=== PATIENT | female | born 2000 | race Caucasian/White ===

== ENCOUNTER 2022-11-17 16:49 | Inpatient (IN) | payer MEDICAID ==
[~2022-11-17] VITALS: Ht 162.6 cm; Wt 61.0 kg
[2022-11-17] MEDS ORDERED: LORAZEPAM 2MG/ML CPJ IM NR (17:00)
[2022-11-17 17:22] LABS: BASOPHILS % 0.2 % (0.0-2.0); EOSINOPHILS % 0.1 % (0.0-5.0); HEMATOCRIT. 34.5 % (36.0-48.0); HEMOGLOBIN. 11.2 g/dL (12.0-16.0); LYMPHOCYTES % 9.2 % (20.0-50.0); MEAN CORPUSCULAR HEMOGLOBIN 30.4 pg (28.0-32.0); MEAN CORPUSCULAR VOLUME 93.8 fL (81.0-99.0); MEAN PLATELET VOLUME 7.5 fl (7.4-10.4); MONOCYTES % 4.5 % (2.0-8.0); PLATELET 271 x1000/uL (130-400); RED BLOOD CELL COUNT 3.68 mill/uL (4.2-5.4)
[2022-11-17 17:31] LABS: CHLORIDE 96 mEq/L (98-107)
[2022-11-17] MEDS ORDERED: SODIUM CHLORIDE 0.9% 1,000 ML IV ONE (19:30)
[2022-11-17 20:15] LABS: ETHANOL BLOOD < 10 mg/dL (-10); PHOSPHORUS 2.4 mg/dL (2.5-4.9)
[2022-11-17] MEDS: KCL 10MEQ/50ML PREMIX 100 ML IV SCH ×2 (21:11→22:14)
[2022-11-17 21:59] LABS: CREATINE KINASE 1641 IU/L (26-192)
[2022-11-18 08:00] VITALS: BP 126/77; PULSE 94; RESP 18; TEMP 97.5
[2022-11-18 12:00] VITALS: BP 107/75; PULSE 89; RESP 23; TEMP 98.1
[2022-11-18] MEDS ORDERED: LORAZEPAM 2MG/ML CPJ IV PRN (12:00)
[2022-11-18 15:41] LABS: BASOPHILS % 0.2 % (0.0-2.0); EOSINOPHILS % 0.1 % (0.0-5.0); HEMATOCRIT. 38.4 % (36.0-48.0); HEMOGLOBIN. 12.7 g/dL (12.0-16.0); LYMPHOCYTES % 18.1 % (20.0-50.0); MEAN CORPUSCULAR HEMOGLOBIN 30.7 pg (28.0-32.0); MEAN CORPUSCULAR VOLUME 92.4 fL (81.0-99.0); MEAN PLATELET VOLUME 7.7 fl (7.4-10.4); MONOCYTES % 9.8 % (2.0-8.0); NEUTROPHILS % 71.8 % (40.0-76.0); PLATELET 270 x1000/uL (130-400); RED BLOOD CELL COUNT 4.15 mill/uL (4.2-5.4); RED CELL DISTRIBUTION WIDTH 13.3 % (11.6-14.6)
[2022-11-18 15:55] LABS: CHLORIDE 107 mEq/L (98-107)
[2022-11-18 15:59] LABS: HCG SCREEN NEGATIVE
[2022-11-18 16:00] VITALS: BP 109/69; PULSE 91; RESP 20; TEMP 101.3
[2022-11-18] MEDS ORDERED: POTASSIUM CHLORIDE 20MEQ TABLET SR PO NR (16:45)
[2022-11-18 18:45] VITALS: TEMP 101.1
[2022-11-18 20:00] VITALS: BP 124/77; PULSE 72; RESP 16; TEMP 98.8
[2022-11-18] MEDS ORDERED: *PATIENT'S OWN MEDICATION STORAGE XX SCH (20:45)
[2022-11-18] MEDS: LEVETIRACETAM 500MG TABLET PO SCH (20:47)
[2022-11-19] VITALS: BP 108/63; PULSE 87; RESP 17; TEMP 98.6
[2022-11-19 04:00] VITALS: BP 105/70; PULSE 60; RESP 16; TEMP 98.1
[2022-11-19 08:00] VITALS: BP 138/69; PULSE 90; RESP 18; TEMP 99.9
[2022-11-19] MEDS: LAMOTRIGINE 100MG TABLET PO SCH ×2 (08:36→20:38)
[2022-11-19] MEDS: LEVETIRACETAM 500MG TABLET PO SCH ×2 (08:36→20:38)
[2022-11-19] MEDS: OXCARBAZEPINE 300MG TABLET PO SCH ×2 (08:37→20:38)
[2022-11-19 12:00] VITALS: BP 121/94; PULSE 83; RESP 18; TEMP 99.8
[2022-11-19] MEDS ORDERED: OXCA300T4 PO (15:10)
[2022-11-19] MEDS ORDERED: KEPP500 PO (15:10)
[2022-11-19] MEDS ORDERED: LAM1 PO (15:10)
[2022-11-19 16:00] VITALS: BP 109/70; PULSE 88; RESP 18; TEMP 98.9
[2022-11-19 20:00] VITALS: BP 99/61; PULSE 91; RESP 20; TEMP 99
[2022-11-20] VITALS: PULSE 87; RESP 20; TEMP 98.5
[2022-11-20 00:31] VITALS: BP 117/79; PULSE 87; RESP 20; TEMP 98.5
[2022-11-20 04:00] VITALS: BP 101/64; PULSE 72; RESP 18; TEMP 98
[2022-11-20 08:00] VITALS: BP 107/75; PULSE 76; RESP 18; TEMP 97.7
[2022-11-20 08:10] VITALS: BP 101/64; PULSE 72; TEMP 98; O2SAT 100
[2022-11-20] MEDS: LAMOTRIGINE 100MG TABLET PO SCH (08:50)
[2022-11-20] MEDS: LEVETIRACETAM 500MG TABLET PO SCH (08:51)
[2022-11-20] MEDS: OXCARBAZEPINE 300MG TABLET PO SCH (08:51)
== END 2022-11-20 12:40 | disposition home or self-care (01) | DRG 53 ==
LOC: ER 16:49 → 6EST 23:56
PROVIDERS: ADMIT Family Medicine Adult Medicine; ATTEND Family Medicine Adult Medicine
PROC: 4A10X4Z Monitoring of Central Nervous Electrical Activity, External Approach (ICD-10-PCS; principal; 2022-11-19)
DX: G40.409 Other generalized epilepsy and epileptic syndromes, not intractable, without status epilepticus (principal); E87.1 Hypo-osmolality and hyponatremia; D72.829 Elevated white blood cell count, unspecified; E87.6 Hypokalemia; Z79.899 Other long term (current) drug therapy
CPT/HCPCS: 36415; 80048; 80053; 80320; 82542; 82550; 83605; 83735; 84100; 84703; 85025; 95816; 99285; J2060; J3480; G0480